=== PATIENT | male | born 1990 | race American Indian/Alaskan Native ===

== ENCOUNTER 2020-09-14 01:50 | Emergency (ER) | payer SELFPAY ==
[2020-09-14 03:22] VITALS: BP 132/95
--- NOTE | 2020-09-14 04:36 | Emergency Department Report ---
- General Chief complaint: Skin Rash Stated complaint: SKIN RASH/IRRITATION Time Seen by Provider: 09/14/20 04:10 Source: patient Mode of arrival: Ambulatory Limitations: No Limitations - History of Present Illness MD complaint: rash -: month(s) Tetanus Up to Date: yes (Several) Location: generalized Severity: mild, moderate Quality: dull Consistency: constant Improves with: none Worsens with: none Context: none Associated symptoms: itching Treatments Prior to Arrival: none - Related Data Previous Rx's Medication Instructions Recorded Last Taken Type Chlorhexidine Gluconate [Hibiclens] 10 ml TP BID #240 liquid 09/14/20 Unknown Rx Mupirocin [Bactroban 2%] 15 applic TP TID #30 gm 09/14/20 Unknown Rx cephALEXin [Keflex] 500 mg PO Q6HR #40 capsule 09/14/20 Unknown Rx Allergies Allergy/AdvReac Type Severity Reaction Status Date / Time No Known Allergies Allergy Unverified 09/14/20 02:19 Abscess Boil HPI - HPI Chief Complaint: Skin Rash Stated Complaint: SKIN RASH/IRRITATION Time Seen by Provider: 09/14/20 04:10 Home Medications: Previous Rx's Medication Instructions Recorded Last Taken Type Chlorhexidine Gluconate [Hibiclens] 10 ml TP BID #240 liquid 09/14/20 Unknown Rx Mupirocin [Bactroban 2%] 15 applic TP TID #30 gm 09/14/20 Unknown Rx cephALEXin [Keflex] 500 mg PO Q6HR #40 capsule 09/14/20 Unknown Rx Allergies/Adverse Reactions: Allergies Allergy/AdvReac Type Severity Reaction Status Date / Time No Known Allergies Allergy Unverified 09/14/20 02:19 ED Review of Systems ROS: Stated complaint: SKIN RASH/IRRITATION Other details as noted in HPI Comment: All other systems reviewed and negative ED Past Medical Hx - Past Medical History Previous Medical History?: No - Surgical History Past Surgical History?: No - Social History Smoking Status: Never Smoker Substance Use Type: Alcohol, Marijuana - Medications Home Medications: Home Medications Medication Instructions Recorded Confirmed Last Taken Type Chlorhexidine Gluconate [Hibiclens] 10 ml TP BID #240 liquid 09/14/20 Unknown Rx Mupirocin [Bactroban 2%] 15 applic TP TID #30 gm 09/14/20 Unknown Rx cephALEXin [Keflex] 500 mg PO Q6HR #40 capsule 09/14/20 Unknown Rx ED Physical Exam - General Limitations: No Limitations General appearance: alert, in no apparent distress - Head Head exam: Present: atraumatic, normocephalic - Eye Eye exam: Present: normal appearance Pupils: Present: normal accommodation - ENT ENT exam: Present: mucous membranes moist - Neck Neck exam: Present: normal inspection - Respiratory Respiratory exam: Present: normal lung sounds bilaterally. Absent: respiratory distress - Cardiovascular Cardiovascular Exam: Present: regular rate, normal rhythm. Absent: systolic murmur, diastolic murmur, rubs, gallop - GI/Abdominal GI/Abdominal exam: Present: soft, normal bowel sounds - Rectal Rectal exam: Present: deferred - Extremities Exam Extremities exam: Present: normal inspection - Back Exam Back exam: Present: normal inspection - Neurological Exam Neurological exam: Present: alert, oriented X3, CN II-XII intact, normal gait - Psychiatric Psychiatric exam: Present: normal affect, normal mood. Absent: flat affect, manic - Skin Skin exam: Present: warm, dry, intact, normal color, other (Multiple hyperpigmented sores bleeding from nail trauma and over 13-14 sites). Absent: rash, diaphoretic, erythema, pallor, abrasion ED Course Vital Signs 09/14/20 02:21 Temperature 98.7 F Pulse Rate 103 H Respiratory 18 Rate Blood Pressure 132/95 O2 Sat by Pulse 99 Oximetry Critical care attestation.: If time is entered above; I have spent that time in minutes in the direct care of this critically ill patient, excluding procedure time. ED Disposition Clinical Impression: Skin rash Disposition: DC-01 TO HOME OR SELFCARE Is pt being admited?: No Does the pt Need Aspirin: No Condition: Stable Instructions: Rash, Adult, [id number], MRSA Infection, Self-Care, Adult Additional Instructions: To be sure to follow-up with your primary care provider for definitive management of your skin rash. Referrals: PRIMARY CARE, [Primary Care Provider] - 3-5 Days [facility] [Provider Group] - 3-5 Days
== END 2020-09-14 05:09 | disposition home or self-care (01) ==
LOC: ED 01:50
DX: R21 Rash and other nonspecific skin eruption (principal); F12.10 Cannabis abuse, uncomplicated; Z79.899 Other long term (current) drug therapy
CPT/HCPCS: 99282

== ENCOUNTER 2020-12-04 16:36 | Emergency (ER) | payer SELFPAY ==
[2020-12-04 17:23] VITALS: BP 117/71
--- NOTE | 2020-12-04 17:43 | Emergency Department Report ---
Stated Complaint: POSS PARASITES Time Seen by Provider: 12/04/20 17:37 - HPI History of Present Illness: The patient was evaluated in the emergency department for symptoms described in the history of present illness. He/she was evaluated in the context of the global COVID-19 pandemic, which necessitated consideration that the patient might be at risk for infection with the virus that causes COVID-19. Institutional protocols and algorithms that pertain to the evaluation of patients at risk for COVID-19 are in a state of rapid change based on information released by regulatory bodies including the CDC and federal and state organizations. These policies and algorithms were followed during the patient's care in the emergency department. Please note that these policies, procedures and recommendations changed on a rapid basis. 30-year-old -[place] male presents to the emergency room complaining of possible parasites on his skin. Patient was seen back in August for the same complaint. Patient admits that he did not follow-up with the referrals. Patient does admit that he picks a lot. Patient denies any fever chills no discharge coming from the sites. Denies any pets in the home. - Exam Vital Signs: Vital Signs 12/04/20 17:12 Temperature 98.0 F Pulse Rate 104 H Respiratory 16 Rate Blood Pressure 117/71 O2 Sat by Pulse 95 Oximetry Physical Exam: General: Awake, appropriately interactive, no acute distress. Neck: Supple. Full range of motion intact. Cardiovascular: Normal peripheral perfusion. Pulmonary: No respiratory distress. Patient is speaking normally without use of accessory muscles. Skin: Multiple hyperpigmented flat lesions with 1 open lesion on the left upper arm. Not erythematous not edematous. Fingernails cuticles are dry. Neurological: No facial asymmetry. Speech is clear. Follows commands. Patient is alert and oriented. Musculoskeletal: Full range of motion, no crepitus. No tenderness to palpate nonerythematous no edema test appreciated. Able to bear weight and ambulate without difficulty. Distal neurovascular and motor/sensory function is intact. Psych: Cooperative. Appropriate mood and affect. MSE screening note: Focused history and physical exam performed. Due to findings the following was ordered: 30-year-old -[place] male presents to the emergency room complaining of possible parasites on his skin. Patient was seen back in August for the same complaint. Patient admits that he did not follow-up with the referrals. Patient does admit that he picks a lot. Patient denies any fever chills no discharge coming from the sites. Denies any pets in the home. Discussed with patient that refer him to a warehouse loader as well as [facility]. Will refer patient to mental health. Encourage patient to stop picking at the sores. ED Disposition for MSE Disposition: HOME / SELF CARE / HOMELESS Is pt being admited?: No Does the pt Need Aspirin: No Condition: Stable Instructions: Contact Dermatitis, [id number] Additional Instructions: Follow-up with her warehouse loader. Follow-up with your primary care provider. Keep your skin moisturized. Referrals: [facility] [Provider Group] - 3-5 Days
== END 2020-12-04 18:35 | disposition home or self-care (01) ==
LOC: ED 16:36
DX: B88.9 Infestation, unspecified (principal)
CPT/HCPCS: 99282